=== PATIENT | male | born 1935 | race Caucasian/White ===

== ENCOUNTER 2022-08-13 09:14 | Emergency (ER) | payer MEDICARE, BC ==
[2022-08-13 09:43] VITALS: BP 144/52; PULSE 97
[2022-08-13 10:43] LABS: ESTIMATED GFR 45 mL/min (>60)
== END 2022-08-13 13:05 | disposition home or self-care (01) ==
LOC: FB.ED 09:14
DX: K59.00 Constipation, unspecified (principal); K92.1 Melena; E78.00 Pure hypercholesterolemia, unspecified; I10 Essential (primary) hypertension; N40.0 Benign prostatic hyperplasia without lower urinary tract symptoms; E66.9 Obesity, unspecified; Z68.29 Body mass index [BMI] 29.0-29.9, adult; Z91.048 Other nonmedicinal substance allergy status; Z79.82 Long term (current) use of aspirin; Z79.899 Other long term (current) drug therapy; Z87.891 Personal history of nicotine dependence
CPT/HCPCS: 36415; 51798; 74176; 80053; 81001; 83735; 85025; 86140; 99283; 99285

== ENCOUNTER 2022-11-24 07:44 | Day surgery (SDC) | payer MEDICARE, BC ==
[2022-11-24] MEDS ORDERED: Lactated Ringers 1,000 ML IV SCH (07:45)
[2022-11-24] MEDS ORDERED: Propofol 200 MG/20 ML SDV IV ONE (07:45)
[2022-11-24] MEDS ORDERED: Sodium Chloride 0.9% 10 ML Syringe FLUSH PRN (07:45)
[2022-11-24] MEDS ORDERED: Lidocaine 2% 5 ML SDV IV ONE (07:45)
[2022-11-24] MEDS ORDERED: Simethicone Drops 40 MG/0.6 ML 30 ML Bottle PO ONE (09:12)
[2022-11-24 10:41] VITALS: BP 136/49; PULSE 64
== END 2022-11-24 10:49 | disposition home or self-care (01) ==
LOC: FB.SDS 07:44
PROVIDERS: ATTEND Surgery
DX: K57.30 Diverticulosis of large intestine without perforation or abscess without bleeding (principal); I12.9 Hypertensive chronic kidney disease with stage 1 through stage 4 chronic kidney disease, or unspecified chronic kidney disease; N18.30 Chronic kidney disease, stage 3 unspecified; E78.00 Pure hypercholesterolemia, unspecified; R63.4 Abnormal weight loss; M19.90 Unspecified osteoarthritis, unspecified site; Z79.899 Other long term (current) drug therapy; Z91.048 Other nonmedicinal substance allergy status; Z87.891 Personal history of nicotine dependence
CPT/HCPCS: 00811; 45378; A9270; J2704; J7120

== ENCOUNTER 2024-08-25 20:08 | Emergency (ER) | payer OTHER, MEDICARE ==
[2024-08-25] MEDS ORDERED: Ciprofloxacin 500 MG Tab PO ONE (20:09)
[2024-08-25 20:42] VITALS: PULSE 85
[2024-08-25 20:50] VITALS: BP 162/50
== END 2024-08-25 21:00 | disposition home or self-care (01) ==
LOC: FB.ED 20:08
DX: N45.1 Epididymitis (principal); I10 Essential (primary) hypertension; E78.00 Pure hypercholesterolemia, unspecified; I25.10 Atherosclerotic heart disease of native coronary artery without angina pectoris; Z91.048 Other nonmedicinal substance allergy status; Z79.82 Long term (current) use of aspirin; Z79.899 Other long term (current) drug therapy
CPT/HCPCS: 99283; A9270

== ENCOUNTER 2024-10-23 16:58 | Emergency (ER) | payer MEDICARE ==
[2024-10-23] MEDS ORDERED: Sodium Chloride 0.9% 10 ML Syringe FLUSH PRN (17:08)
[2024-10-23] MEDS: Ketorolac 30 MG/ML SDV IVPUSH ONE (17:16)
[2024-10-23 17:23] LABS: BASOPHILS PERCENT AUTO 0.4 % (0.3-3.8); EOSINOPHILS ABSOLUTE AUTO 0.4 x10-3/uL (0.0-0.6); EOSINOPHILS PERCENT AUTO 3.6 % (0.1-6.8); HEMOGLOBIN 11.3 g/dL (12.9-17.7); LYMPHOCYTES ABSOLUTE AUTO 1.6 x10-3/uL (0.5-4.5); LYMPHOCYTES PERCENT AUTO 15.6 % (15.8-45.3); MEAN CORPUSCULAR HEMOGLOBIN 32.2 pg (27.0-33.3); MEAN CORPUSCULAR HGB CONC 34.2 g/dL (28.7-35.3); MEAN CORPUSCULAR VOLUME 94.4 fL (80.8-98.7); MEAN PLATELET VOLUME 8.9 fL (6.7-11.0); MONOCYTES ABSOLUTE AUTO 0.6 x10-3/uL (0.0-1.2); MONOCYTES PERCENT AUTO 5.6 % (5.5-15.2); NEUTROPHILS ABSOLUTE AUTO 7.8 x10-3/uL (1.7-6.9); NEUTROPHILS PERCENT AUTO 74.8 % (40.3-71.8); PLATELET COUNT,PLT 172 x10(3)uL (117-477); RED CELL DISTRIBUTION WIDTH 13.4 % (12.4-15.0); WHITE BLOOD CELL COUNT,WBC 10.5 x10-3/uL (3.2-10.1)
[2024-10-23 17:28] LABS: BLOOD UREA NITROGEN,BUN 28 mg/dL (7-18); BUN/CREATININE RATIO 16.5 (9-20); CARBON DIOXIDE,CO2 24 mmol/L (21-32); CHLORIDE,CL 104 mmol/L (100-110); CREATININE 1.7 mg/dL (0.70-1.30); ESTIMATED GFR 38 mL/min (>60); GLUCOSE RANDOM 130 mg/dL (80-116); POTASSIUM,K 4.5 mmol/L (3.5-5.3); SODIUM,NA 137 mmol/L (135-145)
[2024-10-23 17:34] LABS: ALANINE AMINOTRANSFERASE,ALT 26 U/L (12-36); ALBUMIN 3.6 g/dL (3.2-4.6); ALKALINE PHOSPHATASE 110 IU/L (56-112); ASPARTATE AMNIOTRANSFERASE,AST 29 IU/L (5-25); PROTEIN TOTAL,TP 7.4 g/dL (6.0-8.0)
[2024-10-23] MEDS: Morphine 2 MG/ML SYRINGE IVPUSH ONE (18:07)
[2024-10-23] MEDS: oxyCODONE 5 MG Tab PO ONE (18:43)
[2024-10-23] MEDS: Metoprolol Tartrate 25 MG Tab PO ONE (19:59)
[2024-10-23 20:34] VITALS: BP 184/80; PULSE 88
== END 2024-10-23 20:34 | disposition home or self-care (01) ==
LOC: FB.ED 16:58
DX: I10 Essential (primary) hypertension (principal); M75.101 Unspecified rotator cuff tear or rupture of right shoulder, not specified as traumatic; I25.10 Atherosclerotic heart disease of native coronary artery without angina pectoris; E78.00 Pure hypercholesterolemia, unspecified; M19.90 Unspecified osteoarthritis, unspecified site; E66.9 Obesity, unspecified; Z79.899 Other long term (current) drug therapy; Z88.8 Allergy status to other drugs, medicaments and biological substances; Z68.26 Body mass index [BMI] 26.0-26.9, adult
CPT/HCPCS: 80053; 85025; 86140; 96374; 96375; 99283-25; A9270-GY; J1885; J2270